=== PATIENT | female | born 1975 | race African-American/Black ===

== ENCOUNTER 2020-04-04 20:38 | Emergency (ER) | payer SELFPAY ==
[~2020-04-04] VITALS: Ht 160 cm; Wt 82.0 kg
[2020-04-04 23:00] VITALS: BP 114/78
== END 2020-04-04 23:01 | disposition home or self-care (01) ==
LOC: ER 20:38
DX: S80.862A Insect bite (nonvenomous), left lower leg, initial encounter (principal); S80.861A Insect bite (nonvenomous), right lower leg, initial encounter; L02.416 Cutaneous abscess of left lower limb; L02.415 Cutaneous abscess of right lower limb; W57.XXXA Bitten or stung by nonvenomous insect and other nonvenomous arthropods, initial encounter; Y93.9 Activity, unspecified; Y92.9 Unspecified place or not applicable
CPT/HCPCS: 99281